=== PATIENT | male | born 1960 | race Caucasian/White ===

== ENCOUNTER → 2020-04-12 | Day surgery (SDC) | payer BC | END | disposition home or self-care (01) | LOC: MSO 11:51 | DX: C44.41 Basal cell carcinoma of skin of scalp and neck (principal); L72.0 Epidermal cyst; I10 Essential (primary) hypertension; F41.9 Anxiety disorder, unspecified; Z79.82 Long term (current) use of aspirin; Z79.899 Other long term (current) drug therapy ==